=== PATIENT | male | born 2000 | race African-American/Black ===

== ENCOUNTER 2023-08-08 00:33 | Emergency (ER) | payer MEDICAID ==
[~2023-08-08] VITALS: Ht 190.5 cm; Wt 67.1 kg
[2023-08-08] MEDS ORDERED: BACI3.5O23 OP (02:06)
[2023-08-08] MEDS ORDERED: IBUPROFEN 600 MG TABLET ONE (02:14)
[2023-08-08 02:16] VITALS: BP 135/87; TEMP 99; O2SAT 99
[2023-08-08] MEDS ORDERED: IBUPROFEN 600 MG TABLET PO ONE (02:30)
== END 2023-08-08 02:16 | disposition home or self-care (01) ==
LOC: ER 00:46
DX: S09.8XXA Other specified injuries of head, initial encounter (principal); Z60.2 Problems related to living alone; V00.131A Fall from skateboard, initial encounter; Y93.51 Activity, roller skating (inline) and skateboarding; Y92.89 Other specified places as the place of occurrence of the external cause; Y99.8 Other external cause status